=== PATIENT | male | born 1960 | race Caucasian/White ===

== ENCOUNTER 2023-09-13 20:05 | Emergency (ER) | payer OTHER ==
[~2023-09-13] VITALS: Ht 175.3 cm; Wt 74.8 kg
[2023-09-13 21:51] VITALS: BP 148/78; TEMP 99; O2SAT 98
== END 2023-09-13 21:51 | disposition home or self-care (01) ==
LOC: ER 20:06
DX: Z46.6 Encounter for fitting and adjustment of urinary device (principal); R33.8 Other retention of urine; Z98.890 Other specified postprocedural states; I10 Essential (primary) hypertension